=== PATIENT | female | born 1940 | race Asian ===

== ENCOUNTER 2021-10-07 16:17 | Emergency (ER) | payer SELFPAY ==
[2021-10-07 16:24] VITALS: PULSE 90; O2SAT 99
--- NOTE | 2021-10-07 16:24 | ED.GENADULT ---
HPI - General Adult General Chief complaint: Dizziness Stated complaint: Dizziness Time Seen by Provider: 10/07/21 16:22 History of Present Illness HPI narrative: 81-year-old woman with a history of hypertension, diabetes, acid reflux issues a primary care physician in the [facility] presents today complaining of intermittent episodes of vertigo. She describes dizziness of acute onset lasting for minutes to hours typically relieved 1 she has an episode of emesis. Not associated with headache, numbness weakness or other paresthesias. She notes that she has had some tinnitus in the left ear and tipping her head to the left side does make the symptoms worse when they occur. Today she was experiencing in episode of vertigo that began around noon and do not resolve. She called medics and was transported to the emergency room. Shortly around the time medics arrived the vertigo completely resolved and she is completely asymptomatic on arrival in the emergency department. She does note some minor reflux/epigastric pain that is not unusual for her. She states she has been taking her 10 mg of amlodipine has been taking her glipizide as well as her proton pump inhibitor. She describes no recent fevers, cough, chills, chest pain, palpitations. She has had no lower extremity edema. Related Data Previous Rx's Medication Instructions Recorded meclizine 25 mg tablet 25 mg PO TID PRN #20 tab 10/07/21 Allergies Allergy/AdvReac Type Severity Reaction Status Date / Time No Known Drug Allergies Allergy Verified 10/07/21 16:50 Review of Systems Review of Systems Narrative: Remainder of complete review of systems is otherwise unremarkable except for that included in the HPI. Patient History Medical History Acid reflux Diabetes Hypertension Social History Smoking Status: Never smoker Exam Narrative Exam Narrative: General: Healthy appearing, in no acute distress. Able to give a complete and coherent history. Well-nourished well-developed HEENT: Moist mucous membranes, normal sclera with reactive pupils, mild nystagmus with provocative maneuvers to the left side Neck: No JVD, supple Respiratory: Lungs are clear to auscultation, no wheezing no rales no rhonchi. Full and symmetrical air movement Cardiac: Regular rate and rhythm no murmurs no bruits Abdomen: Soft, nontender, good bowel tones, no flank pain Skin: Warm and dry, no rashes Neurologic: Grossly neurologically intact with no obvious asymmetries or abnormalities Extremities: No trauma, well perfused Psych: Cooperative, appropriate insight and affect Initial Vital Signs Initial Vital Signs: Vital Signs Temperature 98.3 F 10/07/21 16:25 Pulse Rate 96 H 10/07/21 16:25 Respiratory Rate 18 10/07/21 16:25 Blood Pressure 175/77 H 10/07/21 16:25 Pulse Oximetry 99 10/07/21 16:25 Course Orders Ordered: ED Orders 10/07/21 16:28 XR chest 1V Stat EKG-12 Lead Stat 10/07/21 16:45 Complete Blood Count AUTO DIFF Stat Comprehensive Metabolic Panel Stat Lipase Stat Magnesium Stat Troponin & CK Cardiac Panel Stat Vital Signs Vital signs: Vital Signs - 8 hr 10/07/21 16:25 Temperature 98.3 F Pulse Rate 96 H Respiratory Rate 18 Blood Pressure 175/77 H Pulse Oximetry 99 Medical Decision Making Lab Data Result diagrams: 10/07/21 16:45 10/07/21 16:45 Labs: Lab Results 10/07/21 10/07/21 Range/Units 16:45 16:45 WBC 10.7 (4.5-11.0) X10^3/uL RBC 4.19 (4.0-5.2) X10^6/uL Hgb 12.9 (12.0-16.0) g/dL Hct 37.3 (36-46) % MCV 89.1 (80-100) fL MCH 30.8 (26-34) PG MCHC 34.6 (30-36) % RDW 13.2 (11.6-14.8) % Plt Count 251 (150-400) X10^3/uL Neut % (Auto) 76.6 H (50-75) % Lymph % (Auto) 15.0 L (25-40) % [place] % (Auto) 6.7 (3-14) % Eos % (Auto) 1.4 L (2-4) % Baso % (Auto) 0.3 (0-2) % Neut # (Auto) 8200 H (5296-2138) /uL Lymph # (Auto) 1600 (6035-1977) /uL [place] # (Auto) 700 (0-900) /uL Eos # (Auto) 200 (0-450) /uL Baso # (Auto) 0 (0-100) /uL Sodium 139 (137-145) mmol/L Potassium 4.0 (3.4-5.1) mmol/L Chloride 104 (98-107) mmol/L Carbon Dioxide 27 (22-32) mmol/L BUN 12 (7-17) mg/dL Creatinine 0.68 (0.52-1.04) mg/dL Estimated GFR > 60.0 (>60) mL/min BUN/Creatinine Ratio 17.6 (6-22) Glucose 111 H (80-110) mg/dL Calcium 9.3 (8.4-10.2) mg/dL Magnesium 2.2 (1.6-2.3) mg/dL Total Bilirubin 0.6 (0.2-1.3) mg/dL AST 28 (14-36) IU/L ALT 17 (<35) IU/L Alkaline Phosphatase 78 (38-126) U/L Total Creatine Kinase 63 (30-135) U/L CK-MB (CK-2) TNP CK-MB (CK-2) Rel Index TNP Troponin I < 0.012 (0.01-0.034) ng/mL Total Protein 8.6 H (6.3-8.2) g/dL Albumin 4.8 (3.5-5.0) g/dL Globulin 3.8 (1.7-4.1) g/dL Albumin/Globulin Ratio 1.3 (1.0-2.8) Lipase 134 (23-300) U/L Imaging Data Chest x-ray: My Impression: Normal cardiac silhouette, no infiltrates, normal chest x-ray ECG Data Interpretation: Sinus rhythm at 87 Normal axis, normal intervals No acute ischemic changes MDM Narrative Medical decision making narrative: 81-year-old woman presents with recurrent episodes of vertigo typically relieved after vomiting. Today's episode lasted approximately 3-1/2 hours and resolved once a medics got there. She comes in for further evaluation at this time is asymptomatic. She has some very mild nystagmus with provocative maneuvers rapidly twisting her head to the left. There is no evidence of infection, stroke, acute coronary syndrome, significant dehydration, life-threatening arrhythmias. I suspect she is having mild episodes of benign positional vertigo given the nystagmus appreciated on exam. She typically uses no medication to help. Whole will give her a prescription for meclizine to try with the next episode and see if this makes any difference for her. This time she is safe for home discharge Discharge Plan Departure Patient Disposition: Home Clinical Impression: Benign paroxysmal positional vertigo Instructions: Benign Paroxysmal Positional Vertigo Activity Restrictions/Additional Instructions: Thank you for coming in today There is no evidence for infection, stroke or heart attack Based on your exam and your normal blood work, EKG and chest x-ray I suspect that you have benign positional vertigo. You can use meclizine/Antivert to help with this. This is both a prescription as well as [id number] medication. If you can find in the pharmacy, please ask the pharmacist to direct you. You can use 1 pill up to 3 times a day as needed for the dizziness. If you find that it does not work, please do not continue using it. If this does not work there are other medications that can be helpful that we can certainly try. These include medications like Zofran or Ativan. Can follow-up with a regular doctor here in the [facility] your doctor in the [facility], the walk-in clinic or return to the ER if needed I wish you the best Prescriptions: New meclizine 25 mg tablet 25 mg PO TID PRN (Reason: dizziness) Qty: 20 3RF Referrals: Ghada Cui MD [Emergency Provider] -
[2021-10-07 16:25] VITALS: BP 175/77; PULSE 96; RESP 18; TEMP 36.8; O2SAT 99
--- NOTE | 2021-10-07 16:28 | DI.RAD.S_ITS ---
PROCEDURE: XR CHEST 1V INDICATIONS: chest pain TECHNIQUE: One view of the chest was acquired. COMPARISON: None. FINDINGS: Surgical changes and devices: None. Lungs and pleura: Lungs are clear. No pleural effusions or pneumothorax. Mediastinum: Mediastinal contours appear normal. Heart size is normal. Bones and chest wall: No suspicious bony lesions. Overlying soft tissues appear unremarkable. IMPRESSION: No acute cardiopulmonary pathology. Dictated by: Kevan Astorga M.D. on 10/07/2021 at 17:00 Approved by: Kevan Astorga M.D. on 10/07/2021 at 17:00
[2021-10-07 16:30] VITALS: BP 160/72; PULSE 88; RESP 15; O2SAT 100
--- NOTE | 2021-10-07 16:50 | PC.NURSE ---
Neuro intact. Denies dizziness at this time.
[2021-10-07 16:54] LABS: Add Manual Diff / Slide Review NO; Basophils Absolute Auto 0 /uL (0-100); Basophils Percent Auto 0.3 % (0-2); Eosinophils Absolute Auto 200 /uL (0-450); Eosinophils Percent Auto 1.4 % (2-4); Hematocrit 37.3 % (36-46); Hemoglobin 12.9 g/dL (12.0-16.0); Lymphocytes Absolute Auto 1600 /uL (1100-4500); Mean Corpuscular HGB Conc 34.6 % (30-36); Mean Corpuscular Hemoglobin 30.8 PG (26-34); Mean Corpuscular Volume 89.1 fL (80-100); Monocytes Absolute Auto 700 /uL (0-900); Monocytes Percent Auto 6.7 % (3-14); Neutrophils Absolute Auto 8200 /uL (1500-7000); Neutrophils Percent Auto 76.6 % (50-75); Platelet Count 251 X10^3/uL (150-400); Red Blood Cell Count 4.19 X10^6/uL (4.0-5.2); Red Cell Distribution Width 13.2 % (11.6-14.8); White Blood Cell Count 10.7 X10^3/uL (4.5-11.0)
[2021-10-07 17:00] VITALS: BP 147/66; PULSE 85; RESP 16; O2SAT 99
[2021-10-07 17:05] LABS: Alanine Aminotransferase 17 IU/L (<35); Albumin 4.8 g/dL (3.5-5.0); Albumin Globulin Ratio 1.3 (1.0-2.8); Alkaline Phosphatase 78 U/L (38-126); Aspartate Aminotransferase 28 IU/L (14-36); BUN Creatinine Ratio 17.6 (6-22); Bilirubin Total 0.6 mg/dL (0.2-1.3); Blood Urea Nitrogen 12 mg/dL (7-17); Calcium 9.3 mg/dL (8.4-10.2); Carbon Dioxide 27 mmol/L (22-32); Chloride 104 mmol/L (98-107); Creatine Kinase 63 U/L (30-135); Estimated Glomerular Filt Rate > 60.0 mL/min (>60); Globulin 3.8 g/dL (1.7-4.1); Glucose 111 mg/dL (80-110); HEMOLYSIS < 15 (0-50); Lipase 134 U/L (23-300); Magnesium 2.2 mg/dL (1.6-2.3); Sodium 139 mmol/L (137-145); Total Protein 8.6 g/dL (6.3-8.2)
[2021-10-07 17:16] LABS: Troponin I < 0.012 ng/mL (0.01-0.034)
[2021-10-07 17:55] VITALS: BP 172/71; PULSE 90; RESP 16; O2SAT 100
== END 2021-10-07 18:00 | disposition home or self-care (01) ==
PROVIDERS: Emergency Provider Emergency Medicine
DX: H81.12 Benign paroxysmal vertigo, left ear (principal); R10.13 Epigastric pain; I10 Essential (primary) hypertension
CPT/HCPCS: 36415; 71045; 80053; 81003; 82550; 83690; 83735; 84484; 85025; 93005; 99284